=== PATIENT | male | born 1960 ===

== ENCOUNTER 2024-02-11 13:27 | Outpatient (CLI) | payer OTHER ==
[~2024-02-11 13:27] MED LIST: CRESTOR20 MG; FLONASE16 GM NS; GILTUSS TR TAB1 EACH PO; ZYRTEC10 MG PO
== END 2024-02-11 13:33 | disposition home or self-care (01) ==
LOC: RAD 13:27
PROVIDERS: ATTEND Ophthalmology
DX: I10 Essential (primary) hypertension (principal)